=== PATIENT | male | born 1990 | race Caucasian/White ===

== ENCOUNTER 2020-09-16 10:20 | Emergency (ER) | payer SELFPAY ==
[2020-09-16 10:30] VITALS: BP 159/99; PULSE 84; RESP 18; TEMP 36.6; O2SAT 98
--- NOTE | 2020-09-16 10:57 | ED.EAR ---
HPI - Ear Problem General Chief complaint: Ear Stated complaint: Ear Pressure Time Seen by Provider: 09/16/20 10:39 Source: patient and RN notes reviewed Mode of arrival: ambulatory Limitations: no limitations History of Present Illness HPI Narrative: Patient presents today complaining of, an over awareness of the inside of my ear. He describes the sensation as similar to pressure bilaterally, R>L days. Denies drainage. Denies fever, congestion, rhinorrhea, sore throat, cough. Denies pain to the ears. History of tinnitus. He also reports some irritation to his eyes. He used some old antibiotic eardrops without relief. Related Data Home Medications Medication Instructions Recorded Confirmed No Home Medications 09/16/20 09/16/20 Allergies Allergy/AdvReac Type Severity Reaction Status Date / Time No Known Allergies Allergy Verified 09/16/20 10:48 Review of Systems Review of Systems: Narrative: CONSTITUTIONAL: Denies body aches, fever, chills, or sweats. EYES: Denies visual changes, redness, or discharge. ENT: Denies rhinorrhea, congestion, sore throat. + Bilateral ear pressure CARDIOVASCULAR: Denies chest pain, palpitations, or edema. RESPIRATORY: Denies cough or dyspnea. GASTROINTESTINAL: Denies abdominal pain, nausea, vomiting, or diarrhea. GENITOURINARY: Denies dysuria or hematuria. SKIN: Denies rash, itching, or wounds. MUSCULOSKELETAL: Denies back pain, joint pain, or myalgia. NEUROLOGIC: Denies headache, numbness, tingling, or weakness. PSYCH: Denies depression or anxiety. [facility] Past Medical History Medical History (Updated 09/16/20 @ 11:03 by Kaylan Brito, [facility], ) History of hypertension Tinnitus Comments At time of signature, I have reviewed and agree with nursing past medical, surgical, social and family history unless otherwise noted. Please see nursing chart for further information. There is no relevant family history pertinent to the presenting complaint Exam Narrative: Exam Narrative: GENERAL: Well-appearing, well-nourished, and in no acute distress. HEAD: Normocephalic, atraumatic. EYES: EOMI. PERRL. No redness or drainage. Conjunctivae normal. ENT: Mucous membranes pink and moist. Nares clear. No rhinorrhea. Small amount of fluid behind the right TM. Left cerumen impaction. After wax was removed, small amount of fluid behind the left TM. No evidence of infection bilaterally. See procedure note. Throat normal. Uvula midline. NECK: Normal AROM. Supple. No lymphadenopathy. CHEST: No respiratory distress. EXTREMITIES: Normal range of motion. No edema. SKIN: Warm, dry, no rash. Capillary refill normal. Normal skin turgor. NEURO: No focal deficits. Alert and oriented x3. Gait steady. PSYCH: Normal affect. No signs of depression or anxiety. Course Vital Signs Vital signs: Vital Signs Temperature 97.9 F 09/16/20 10:30 Pulse Rate 84 09/16/20 10:30 Respiratory Rate 18 09/16/20 10:30 Blood Pressure 159/99 H 09/16/20 10:30 Pulse Oximetry 98 09/16/20 10:30 Temperature 97.9 F 09/16/20 10:30 Pulse Rate 84 09/16/20 10:30 Respiratory Rate 18 09/16/20 10:30 Blood Pressure 159/99 H 09/16/20 10:30 Pulse Oximetry 98 09/16/20 10:30 Reviewed. Pt has been instructed to follow up with his PCP regarding his elevated blood pressure today. Procedures Ear Wax Removal Left Ear: Ear Wax Removal Date: 09/16/20 Ear Wax Removal Time: 10:55 Results: Re-examined: some cerumen remains TM Examination: TM(s) intact, normal appearance Ear Canal Exam: atraumatic Patient Tolerated Procedure: well Complications: no problems Technique: ear canal curetted Medical Decision Making Differential Diagnosis Differential Diagnosis: Otitis media, otitis externa, ruptured TM, serous otitis, eustachian tube dysfunction, cerumen impaction Vital Signs Vital Signs: Vital Signs Temperature 97.9 F 09/16/20 10:30 Puls
== END 2020-09-16 11:06 | disposition home or self-care (01) ==
PROVIDERS: Emergency Provider Nurse Practitioner
DX: H61.22 Impacted cerumen, left ear (principal); H65.03 Acute serous otitis media, bilateral; I10 Essential (primary) hypertension
CPT/HCPCS: 69210; 99212; G0463